=== PATIENT | male | born 1955 | race Asian ===

== ENCOUNTER 2016-05-27 22:31 | Inpatient (IN) | payer OTHER ==
[~2016-05-27] VITALS: Ht 172.7 cm; Wt 64.0 kg
[2016-05-27] MEDS ORDERED: IV NS 0.9% 1,000 ML BAG IV ONE (23:00)
[2016-05-27] MEDS ORDERED: PANTOPRAZOLE 80 MG in IV NS 0.9% 100 ML IV ONE (23:00)
[2016-05-27] MEDS ORDERED: ONDANSETRON HCL/PF 4 MG/2 ML VIAL IVP ONE (23:00)
[2016-05-27 23:42] LABS: ANION GAP 13 (5-14); CALCIUM, SERUM 8.6 mg/dL (8.5-10.1); CARBON DIOXIDE 29 mmol/L (21-32); CHLORIDE 106 mmol/L (98-107); CREATININE 0.8 mg/dL (0.6-1.3); GFR 98 mL/min (>60); GLUCOSE 120 mg/dL (74-106); POTASSIUM 3.8 mmol/L (3.5-5.1); SODIUM SERUM 144 mmol/L (136-145); UREA NITROGEN, BLOOD 20 mg/dL (7-18)
[2016-05-27 23:47] LABS: BASOPHILS % (AUTO) 0.2 % (0.0-2.0); DIFF TOTAL % 100 %; EOSINOPHILS # (AUTO) 0.1 /CMM (0.0-0.7); EOSINOPHILS % (AUTO) 0.5 % (0.0-6.0); HEMATOCRIT 47 % (39-51); HEMOGLOBIN 15.3 g/dL (13.5-17.5); LYMPHOCYTES # (AUTO) 1.2 /CMM (0.8-4.8); LYMPHOCYTES % (AUTO) 8.9 % (20.0-44.0); MEAN CORPUSCULAR HEMOGLOBIN 27 PG (26.0-33.0); MEAN CORPUSCULAR HGB CONC 33 g/dl (31.0-36.0); MEAN CORPUSCULAR VOLUME 81 fL (80-96); MONOCYTES # (AUTO) 0.4 /CMM (0.1-1.30); NEUTROPHILS # (AUTO) 11.3 /CMM (1.8-8.9); NEUTROPHILS % (AUTO) 87.4 % (43.0-81.0); PLATELET COUNT (AUTO) 174 /CMM (150-450); RED BLOOD CELL COUNT(AUTO) 5.78 MIL/uL (4.5-6.0); TROPONIN I < 0.017 ng/mL (0.00-0.056); WHITE BLOOD COUNT (AUTO) 12.9 K/uL (4.3-11.0)
[2016-05-27 23:56] LABS: ALANINE AMINOTRANSFERASE 20 U/L (12-78); ASPARTATE AMINOTRANSFERASE 21 U/L (15-37); BILIRUBIN,DIRECT 0.1 mg/dL (0.0-0.2); BILIRUBIN,TOTAL 0.5 mg/dL (0.2-1.0); INDIRECT BILIRUBIN 0.4 mg/dL (0.0-1.1); TOTAL PROTEIN, SERUM 7.7 g/dL (6.4-8.2)
[2016-05-27 23:57] LABS: INR 0.96 (0.87-1.13); PROTHROMBIN TIME 10.4 SECS (9.5-12.7)
[2016-05-28] VITALS (7 sets, daily range): BP systolic 109–136; BP diastolic 64–85
[2016-05-28] MEDS ORDERED: IV NS 0.9% 1,000 ML ONE (00:03)
[2016-05-28] MEDS ORDERED: IV SET PRIMARY PUMP SET 1 EA INFUS.SET MC ONE ×2 (00:03→12:04)
[2016-05-28] MEDS ORDERED: IV NS 0.9% 100 ML IV ONE (00:03)
[2016-05-28] MEDS ORDERED: ONDANSETRON HCL/PF 4 MG/2 ML VIAL ONE (00:03)
[2016-05-28] MEDS ORDERED: IV SET PRIMARY 1 EA INFUS.SET MC ONE (00:03)
[2016-05-28] MEDS ORDERED: PANTOPRAZOLE 40 MG VIAL ONE (00:04)
[2016-05-28] MEDS ORDERED: HYDROCODONE/APAP 5/325MG 1 EACH TABLET PO PRN (01:00)
[2016-05-28] MEDS ORDERED: ZOLPIDEM TARTRATE 5 MG TABLET PO PRN (01:00)
[2016-05-28] MEDS ORDERED: MAGNESIUM HYDROXIDE 30 ML UDC PO PRN (01:00)
[2016-05-28] MEDS ORDERED: PANTOPRAZOLE 40 MG VIAL IV SCH (01:00)
[2016-05-28] MEDS ORDERED: MAG HYDROX/AL HYDROX/SIMETH 30 ML UDC PO PRN (01:00)
[2016-05-28] MEDS ORDERED: Z GUARD REMEDY 2 OZ OINT TP PRN (01:00)
[2016-05-28] MEDS ORDERED: ONDANSETRON HCL/PF 4 MG/2 ML VIAL IVP PRN (01:00)
[2016-05-28] MEDS ORDERED: ACETAMINOPHEN 325 MG TABLET PO PRN (01:00)
[2016-05-28] MEDS ORDERED: AMLO5TAB2 PO (08:10)
[2016-05-28] MEDS ORDERED: MIRT15TA7 PO (08:10)
[2016-05-28] MEDS ORDERED: TRAZ-144 PO (08:10)
[2016-05-28] MEDS ORDERED: ATOR10TA PO (08:10)
[2016-05-28] MEDS ORDERED: ASPI81TA2 PO (08:10)
[2016-05-28] MEDS ORDERED: DONE5TAB34 PO (08:10)
[2016-05-28] MEDS: IV NS 0.9% 1,000 ML IV PRN ×2 (12:19→20:46)
[2016-05-28] MEDS: PANTOPRAZOLE 40 MG VIAL IV SCH (16:46)
[2016-05-28] MEDS: SUCRALFATE 1 G/10 ML UDC GT SCH (23:30)
[2016-05-29] VITALS: BP 114/68
[2016-05-29 04:00] VITALS: BP 117/68
[2016-05-29] MEDS: IV NS 0.9% 1,000 ML IV PRN ×2 (05:22→16:40)
[2016-05-29 07:03] LABS: BASOPHILS % (AUTO) 0.8 % (0.0-2.0); DIFF TOTAL % 100 %; EOSINOPHILS # (AUTO) 0.2 /CMM (0.0-0.7); EOSINOPHILS % (AUTO) 2.7 % (0.0-6.0); HEMATOCRIT 41 % (39-51); HEMOGLOBIN 13.7 g/dL (13.5-17.5); LYMPHOCYTES # (AUTO) 1.6 /CMM (0.8-4.8); LYMPHOCYTES % (AUTO) 27.4 % (20.0-44.0); MEAN CORPUSCULAR HEMOGLOBIN 27 PG (26.0-33.0); MEAN CORPUSCULAR HGB CONC 33 g/dl (31.0-36.0); MEAN CORPUSCULAR VOLUME 81 fL (80-96); MONOCYTES # (AUTO) 0.3 /CMM (0.1-1.30); MONOCYTES % (AUTO) 5.8 % (2.0-12.0); NEUTROPHILS # (AUTO) 3.6 /CMM (1.8-8.9); NEUTROPHILS % (AUTO) 63.3 % (43.0-81.0); PLATELET COUNT (AUTO) 144 /CMM (150-450); RED BLOOD CELL COUNT(AUTO) 5.07 MIL/uL (4.5-6.0); WHITE BLOOD COUNT (AUTO) 5.7 K/uL (4.3-11.0)
[2016-05-29 07:23] LABS: CALCIUM, SERUM 7.8 mg/dL (8.5-10.1); CREATININE 0.7 mg/dL (0.6-1.3); PHOSPHORUS 2.5 mg/dL (2.5-4.9); POTASSIUM 3.9 mmol/L (3.5-5.1)
[2016-05-29] MEDS: SUCRALFATE 1 G/10 ML UDC GT SCH ×3 (07:30→16:41)
[2016-05-29 08:00] VITALS: BP_SYST 127; BP_SYST 137; BP_DIAS 50; BP_DIAS 80
[2016-05-29] MEDS: PANTOPRAZOLE 40 MG VIAL IV SCH ×2 (09:01→16:41)
[2016-05-29 12:00] VITALS: BP 118/73
[2016-05-29] MEDS ORDERED: ANESTHESIA TRAY IN PYXIS 1 EA TRAY MC ONE (13:35)
[2016-05-29] MEDS ORDERED: SECONDARY IV SET 1 EA INFUS.SET MC ONE (13:50)
[2016-05-29] MEDS: Magnesium 1GM/D5W 100ML PREMIX 100 ML IV SCH ×2 (13:53→15:01)
[2016-05-29 16:00] VITALS: BP 139/58
[2016-05-29 20:00] VITALS: BP 145/76
[2016-05-30] VITALS: BP 137/63
[2016-05-30] MEDS: IV NS 0.9% 1,000 ML IV PRN ×2 (01:01→10:08)
[2016-05-30 04:00] VITALS: BP 127/63
[2016-05-30 08:00] VITALS: BP 134/98
[2016-05-30] MEDS: PANTOPRAZOLE 40 MG VIAL IV SCH ×2 (08:06→16:31)
[2016-05-30] MEDS: SUCRALFATE 1 G/10 ML UDC GT SCH ×3 (08:06→16:31)
[2016-05-30 10:26] LABS: CREATININE 0.7 mg/dL (0.6-1.3)
[2016-05-30 12:00] VITALS: BP_SYST 126; BP_SYST 155; BP_DIAS 70; BP_DIAS 75
== END 2016-05-30 17:30 | disposition home or self-care (01) | DRG 241 ==
LOC: ER 22:34 → TELE1 05-28 00:08
PROVIDERS: ADMIT Family Medicine; ATTEND Family Medicine
PROC: 0DB68ZX Excision of Stomach, Via Natural or Artificial Opening Endoscopic, Diagnostic (ICD-10-PCS; principal; 2016-05-29 12:15)
DX: K29.01 Acute gastritis with bleeding (principal); G93.40 Encephalopathy, unspecified; F03.90 Unspecified dementia, unspecified severity, without behavioral disturbance, psychotic disturbance, mood disturbance, and anxiety; D72.828 Other elevated white blood cell count; I10 Essential (primary) hypertension; B96.81 Helicobacter pylori [H. pylori] as the cause of diseases classified elsewhere
CPT/HCPCS: 36415; 71010-TC; 80048-TC; 80061-TC; 80076-TC; 83690-TC; 83735-TC; 84100-TC; 84484-TC; 85025-TC; 85730-TC; 86850-TC; 87081-TC; 88305-TC; 88313-TC; 88342; C9113; J2405; J3475; J7030; Z7610

== ENCOUNTER 2020-10-27 09:16 | Inpatient (IN) | payer OTHER ==
[~2020-10-27] VITALS: Ht 154.9 cm; Wt 54.4 kg
[~2020-10-27 09:16] MED LIST: AMLO-212 PO; ASPI-1169 PO; ATOR10TA PO; DONE5TAB34 PO; MIRT15TA7 PO; TRAZ-182 PO
[2020-10-27 09:40] LABS: BASOPHILS % (AUTO) 0.2 % (0.0-2.0); EOSINOPHILS % (AUTO) 0.4 % (0.0-6.0); HEMATOCRIT 48 % (39-51); HEMOGLOBIN 15.7 g/dL (13.5-17.5); LYMPHOCYTES # (AUTO) 1.2 /CMM (0.8-4.8); LYMPHOCYTES % (AUTO) 8.6 % (20.0-44.0); MEAN CORPUSCULAR HGB CONC 33 g/dl (31.0-36.0); MEAN CORPUSCULAR VOLUME 84 fL (80-96); MONOCYTES # (AUTO) 1.4 /CMM (0.1-1.30); MONOCYTES % (AUTO) 9.8 % (2.0-12.0); NEUTROPHILS # (AUTO) 11.7 /CMM (1.8-8.9); PLATELET COUNT (AUTO) 221 /CMM (150-450); RED BLOOD CELL COUNT(AUTO) 5.73 MIL/uL (4.5-6.0); WHITE BLOOD COUNT (AUTO) 14.4 K/uL (4.3-11.0)
[2020-10-27 09:42] LABS: BILIRUBIN,URINE MODERATE (NEGATIVE); COLOR,URINE DARK YELLOW (YELLOW); LEUKOCYTE ESTERASE ,URINE Negative (NEGATIVE); NITRITE, URINE Negative (NEGATIVE); PROTEIN,URINE 30 mg/dl (NEGATIVE); UGLUCOSE Negative (NEGATIVE)
--- NOTE | 2020-10-27 09:42 | NUR ---
radha, c/o abd pain since tuesday, no N/V, -diarrhea, 02/06 PS. On room air, breathing evenly and unlabored. Connected to the monitor and pulse ox. Kept comfortable, will continue to monitor accordingly. IV access started and lab drawned and sent to lab.
[2020-10-27 09:52] LABS: ALBUMIN 3.4 g/dL (3.4-5.0); BILIRUBIN,DIRECT 0.3 mg/dL (0.0-0.2); BILIRUBIN,TOTAL 1.4 mg/dL (0.2-1.0); CALCIUM, SERUM 8.9 mg/dL (8.5-10.1); CREATININE 0.9 mg/dL (0.6-1.3); POTASSIUM 3.7 mmol/L (3.5-5.1); TOTAL PROTEIN, SERUM 8.1 g/dL (6.4-8.2)
[2020-10-27 09:52] LABS: BACTERIA,URINE Few /HPF (None Seen); MUCUS,URINE Few /LPF (None Seen); RBC,URINE 0-2 /HPF (0-2); SQUAMOUS EPITHELIAL CELL,UR 0-2 /HPF (None Seen); WBC,URINE 0-2 /HPF (0-3)
[2020-10-27] MEDS ORDERED: IOHEXOL-300 100 ML VIAL IV ONE (10:07)
--- NOTE | 2020-10-27 10:09 | NUR ---
wheeled patient to ct
--- NOTE | 2020-10-27 10:45 | NUR ---
paged epic for panel admission
[2020-10-27] MEDS ORDERED: ONDANSETRON HCL/PF 4 MG/2 ML VIAL ONE (10:46)
[2020-10-27] MEDS ORDERED: MORPHINE SULFATE INJ 4 MG/ML DISP.SYRIN ONE (10:46)
[2020-10-27] MEDS ORDERED: LISI10TA29 PO (10:57)
[2020-10-27] MEDS ORDERED: BENZ-38 PO (10:57)
[2020-10-27] MEDS ORDERED: ONDA4TAB11 PO (10:57)
[2020-10-27] MEDS ORDERED: DOCU-342 PO (10:57)
[2020-10-27] MEDS ORDERED: LORA10TA7 PO (10:57)
[2020-10-27] MEDS ORDERED: PIPERACILLIN /TAZOBACTAM 3.375 G in IV D5W 50 ML IV ONE (11:00)
[2020-10-27] MEDS ORDERED: IV NS 0.9% 1,000 ML IV ONE (11:00)
[2020-10-27] MEDS ORDERED: ONDANSETRON HCL/PF 4 MG/2 ML VIAL IV ONE (11:00)
[2020-10-27] MEDS ORDERED: MORPHINE SULFATE INJ 2 MG/ML DISP.SYRIN IV ONE (11:00)
--- NOTE | 2020-10-27 11:20 | NUR ---
NURSING SUP CALLED AND ASKED ABOUT BED
--- NOTE | 2020-10-27 11:40 | NUR ---
PATIENT ADMITTING ROOM 308-2, RECEIVED REPORT ASHLEY/AMAN.
--- NOTE | 2020-10-27 11:41 | NUR ---
report given to Haydee GALLOWAY for erick
--- NOTE | 2020-10-27 12:05 | NUR ---
PATIENT ADMITTED FROM ER WITH MIGEL ADMITTED DX IS APPENDICITIS. PATIENT AMBULATORY AND INTACT SKIN, GIVEN ROOM ORIENTATION. CALL LIGHT WITHIN REACH, WILL CONTINUE TO MONITOR.
--- NOTE | 2020-10-27 12:05 | NUR ---
covid negative per lab
--- NOTE | 2020-10-27 12:18 | NUR ---
wheeled patient via gurney accompanied by EMT in no distress. RN at bedside to assume care.
[2020-10-27 13:00] VITALS: BP 159/82
--- NOTE | 2020-10-27 14:45 | NUR ---
SPOKE WITH DTR/TASIA REGARDING SIGN FOR CONSENT WHO WILL VISIT TO SEE PATIENT AND SIGN ON CONSENT.
[2020-10-27 16:00] VITALS: BP 152/78
--- NOTE | 2020-10-27 16:26 | NUR ---
PATIENT C/O ABDOMINAL PAIN, RECEIVED NEW ORDER: NORCO 5/325 MG P.O Q4, NOTED AND CARRY OUT.
[2020-10-27] MEDS: HYDROCODONE/APAP 5/325MG TABLET PO PRN ×2 (16:37→20:46)
--- NOTE | 2020-10-27 17:41 | NUR ---
OBTAINED SIGN OF CONSENT FOR LAPAROSCOPY, POSSIBLE LAPAROTOMY, POSSIBLE BOWEL RESECTION BY DTR/TASIA.
--- NOTE | 2020-10-27 18:03 | NUR ---
RN CLOSING NOTE PATIENT RESTING IN BED, REMAINS AO X 3-4. SKIN IS WARM TOUCH, KEEP CLEAN/DRY. RESPIRATORY EVEN AND UNLABORED IN ROOM AIR. KEPT ELEVATED HOB FOR ENSURE AIRWAY, ALSO LOWEST BED POSITION FOR SAFETY. PATIENT HAVE PROCEDURE TOMORROW, CONSENT HAS BEEN SINGED ALREADY. CALL LIGHT WITHIN REACH, WILL ENDORSE ASSISTANT CONSTRUCTION SUPERINTENDENT.
[2020-10-27 19:58] VITALS: BP 146/71
[2020-10-27 20:00] VITALS: BP 146/71
--- NOTE | 2020-10-27 20:22 | NUR ---
RECIEVED THE PATIENT IN BED ALERT AND ORIENTATED X3 DAUGHTER AT THE BEDSIDE BOTH ARE AWARE HE IS HAVING SURGERY IN THE AM AND BEING NPO AT MIDNIGHT BED ALARM ON REVIEWED THE CALL LIGHT WITH HIM CALL PLACED TO NOL AND QUESTIONED IF PATIENT NEED TO HAVE IV FLUID DO TO BEING NPO AT MIDNIGHT REPONSE WAS NO.
[2020-10-27] MEDS ORDERED: ONDANSETRON HCL/PF 4 MG/2 ML VIAL IVP PRN (22:00)
[2020-10-27] MEDS ORDERED: ACETAMINOPHEN 325 MG TABLET PO PRN (22:00)
[2020-10-27] MEDS ORDERED: Z GUARD REMEDY 2 OZ OINT TP PRN (22:00)
[2020-10-27] MEDS ORDERED: ZOLPIDEM TARTRATE 5 MG TABLET PO PRN (22:00)
[2020-10-27] MEDS ORDERED: BENZONATATE 100 MG CAPSULE PO PRN (22:30)
[2020-10-27] MEDS ORDERED: IV PREMIX D5 1/2NS + KCL 1,000 ML IV ONE (23:14)
[2020-10-27] MEDS: Potassium Chloride 20 MEQ in IV D5/0.45 NACL 1,000 ML IV PRN (23:25)
[2020-10-27] MEDS ORDERED: PIPERACILLIN /TAZOBACTAM 3.375 G VIAL IV ONE (23:40)
[2020-10-27] MEDS: ZOSYN IVPB 3.375 G in IV D5W 50ml IV SCH (23:45)
[2020-10-28] VITALS (12 sets, daily range): BP systolic 78–149; BP diastolic 35–80
[2020-10-28] MEDS: HYDROCODONE/APAP 5/325MG TABLET PO PRN ×2 (03:34→23:07)
--- NOTE | 2020-10-28 04:04 | NUR ---
ending notes: >NPO SINCE MIDNIGHT >SCHEDULED THIS EARLY AM FOR SURGERY WITH MD BOYD PT / DTR GURPREET AWARE >CONSENT SIGNED >LAST PO ANALGESIC FOR RIGHT LOWER ABD PAIN 0400AM AND EFFECTIVE >INC SPIR TEACHING STARTED
[2020-10-28 04:59] LABS: BASOPHILS % (AUTO) 0.4 % (0.0-2.0); EOSINOPHILS % (AUTO) 1.2 % (0.0-6.0); HEMATOCRIT 42 % (39-51); HEMOGLOBIN 13.4 g/dL (13.5-17.5); LYMPHOCYTES # (AUTO) 1.1 /CMM (0.8-4.8); LYMPHOCYTES % (AUTO) 9.1 % (20.0-44.0); MEAN CORPUSCULAR HGB CONC 32 g/dl (31.0-36.0); MEAN CORPUSCULAR VOLUME 83 fL (80-96); MONOCYTES # (AUTO) 1.1 /CMM (0.1-1.30); MONOCYTES % (AUTO) 8.6 % (2.0-12.0); NEUTROPHILS # (AUTO) 10.1 /CMM (1.8-8.9); NEUTROPHILS % (AUTO) 80.7 % (43.0-81.0); PLATELET COUNT (AUTO) 189 /CMM (150-450); RED BLOOD CELL COUNT(AUTO) 5.04 MIL/uL (4.5-6.0); WHITE BLOOD COUNT (AUTO) 12.5 K/uL (4.3-11.0)
[2020-10-28 05:29] LABS: CALCIUM, SERUM 8.4 mg/dL (8.5-10.1); CREATININE 0.8 mg/dL (0.6-1.3); MAGNESIUM 1.7 mg/dL (1.8-2.4); PHOSPHORUS 3.6 mg/dL (2.5-4.9); POTASSIUM 4.1 mmol/L (3.5-5.1)
[2020-10-28] MEDS: ZOSYN IVPB 3.375 G in IV D5W 50ml IV SCH (05:41)
[2020-10-28] MEDS ORDERED: FENTANYL PF 250MCG/5ML AMPUL ONE (06:54)
[2020-10-28] MEDS ORDERED: MIDAZOLAM HCL 2 MG/2ML VIAL ONE (06:54)
[2020-10-28] MEDS ORDERED: FENTANYL PF 100MCG/2ML AMPUL ONE (06:54)
[2020-10-28] MEDS ORDERED: HYDROMORPHONE INJ 2 MG/ML DISP.SYRIN ONE (06:55)
[2020-10-28] MEDS ORDERED: FAMOTIDINE/PF INJ 20 MG/2 ML VIAL IV ONE (06:56)
[2020-10-28] MEDS ORDERED: Potassium Chloride 20 MEQ in IV D5/0.45 NACL 1,000 ML IV SCH (07:00)
[2020-10-28] MEDS ORDERED: LIDOCAINE 1% INJ 50 ML MDV IJ ONE (07:01)
[2020-10-28] MEDS ORDERED: ANESTHESIA TRAY IN PYXIS 1 EA TRAY MC ONE (07:01)
[2020-10-28] MEDS ORDERED: BUPIVACAINE MPF W/EPI 0.25% 30 ML VIAL ONE (07:01)
--- NOTE | 2020-10-28 07:49 | NUR ---
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 WILL CONTINUE TO MONITOR.
[2020-10-28] MEDS ORDERED: METRONIDAZOLE 500MG/ NS 100ML 100 ML IV ONE (07:58)
[2020-10-28] MEDS: LORATADINE 10 MG TABLET PO SCH (09:00)
[2020-10-28] MEDS: LISINOPRIL (10MG) 10 MG TABLET PO SCH (09:00)
[2020-10-28] MEDS: ATORVASTATIN 10 MG TABLET PO SCH (09:00)
[2020-10-28] MEDS: DOCUSATE SODIUM 100 MG CAPSULE PO SCH ×2 (09:00→17:17)
[2020-10-28] MEDS ORDERED: HYDROMORPHONE 1 MG/1 ML DISP.SYRIN ONE (09:30)
[2020-10-28] MEDS ORDERED: LABETALOL HCL IV 100MG VIAL ONE (09:54)
--- NOTE | 2020-10-28 10:25 | NUR ---
PATIENT BACK FROM PROCEDURE ACCOMPANIED BY NURSE, VITAL SIGNS ARE DOCUMENTED ON INTERVENTION. RESPIRATORY EVEN AND UNLABORED WITH OXYGEN AT 1LPM. PATIENT STILL DROWSINESS DUE TO ANESTHESIA BUT EASILY WAKES UP BY VOICE AND PHYSICAL STIMULI. KEEP CLEAN/DRY ON SURGERY SITE, NO ACTIVE BLEEDING OR OOZING OBSERVED. WILL CONTINUE TO MONITOR.
[2020-10-28] MEDS ORDERED: METOCLOPRAMIDE HCL 10 MG/2 ML VIAL IV SCH ×2 (11:00→12:00)
[2020-10-28] MEDS: Magnesium 1GM/D5W 100ML PREMIX 100 ML IV SCH ×2 (13:28→14:55)
[2020-10-28] MEDS: METOCLOPRAMIDE HCL 10 MG/2 ML VIAL IV SCH ×3 (13:29→23:07)
[2020-10-28] MEDS: PIPERACILLIN /TAZOBACTAM 3.375 G in IV D5W 50 ML IV SCH ×3 (13:30→23:07)
[2020-10-28] MEDS: MORPHINE SULFATE INJ 2 MG/ML DISP.SYRIN IV PRN (17:27)
--- NOTE | 2020-10-28 17:35 | NUR ---
PATIENT C/O ABD PAIN IN SCALE 8/10 DUE TO S/P LAPAROSCOPY, GIVEN MORPHINE 2MG NEEDED PAIN MEDICATION.
--- NOTE | 2020-10-28 18:32 | NUR ---
RN CLOSING NOTE PATIENT RESTING IN BED, REMAINS AO X 3-4, S/P ABDOMINAL SX, DOES NO APPEARS DISTRESS OR DISCOMFORT. SKIN IS WARM TOUCH, KEEP CLEAN/DRY, NO ACTIVE BLEEDING OR OOZING OBSERVED ON ABDOMINAL DRESSING. RESPIRATORY EVEN AND UNLABORED IN ROOM AIR O2SAT 985. KEPT ELEVATED HOB FOR ENSURE AIRWAY AND ASPIRATION PRECAUTION, ALSO LOWEST BED POSITION FOR SAFETY. CALL LIGHT WITHIN REACH, WILL ENDORSE PCMH SPECIALIST.
--- NOTE | 2020-10-28 19:05 | NUR ---
MS RN OPENING NOTES: RECEIVED PATIENT IN BED, AWAKE, A/O X3. NO S/S OF DISTRESS NOTED. CALL LIGHT WITHIN REACH. BED ALARM ON. BED IN LOWEST AND LOCKED POSITION. WITH GLASS CATHETER INTACT, SECURED WITH PAPER TAPE, DRAINING TO A CLEAR LIGHT ELVA COLORED URINE.
[2020-10-28] MEDS: Potassium Chloride 20 MEQ in IV D5/0.45 NACL 1,000 ML IV PRN (21:13)
[2020-10-29] MEDS: HYDROCODONE/APAP 5/325MG TABLET PO PRN (04:00)
[2020-10-29] MEDS: PIPERACILLIN /TAZOBACTAM 3.375 G in IV D5W 50 ML IV SCH ×4 (05:51→23:42)
[2020-10-29] MEDS: METOCLOPRAMIDE HCL 10 MG/2 ML VIAL IV SCH ×4 (05:52→23:42)
[2020-10-29 05:59] LABS: BASOPHILS % (AUTO) 0.1 % (0.0-2.0); EOSINOPHILS % (AUTO) 0.2 % (0.0-6.0); HEMATOCRIT 39 % (39-51); HEMOGLOBIN 12.6 g/dL (13.5-17.5); LYMPHOCYTES % (AUTO) 7.5 % (20.0-44.0); MEAN CORPUSCULAR HGB CONC 33 g/dl (31.0-36.0); MEAN CORPUSCULAR VOLUME 83 fL (80-96); MONOCYTES # (AUTO) 1.1 /CMM (0.1-1.30); MONOCYTES % (AUTO) 7.6 % (2.0-12.0); NEUTROPHILS # (AUTO) 11.7 /CMM (1.8-8.9); NEUTROPHILS % (AUTO) 84.6 % (43.0-81.0); PLATELET COUNT (AUTO) 192 /CMM (150-450); RED BLOOD CELL COUNT(AUTO) 4.64 MIL/uL (4.5-6.0); WHITE BLOOD COUNT (AUTO) 13.8 K/uL (4.3-11.0)
[2020-10-29 06:21] LABS: MAGNESIUM 2.4 mg/dL (1.8-2.4); POTASSIUM 4.5 mmol/L (3.5-5.1)
--- NOTE | 2020-10-29 06:43 | NUR ---
GLASS CATHETER REMOVED,PATIENT TOLERATED, DUE TO VOID, WILL ENDORSE TO THE NEXT SHIFT RN.
--- NOTE | 2020-10-29 07:17 | NUR ---
LAINEY TREJO RECEIVED PATIENT IN BED, AWAKE, A/O X3. NO S/S OF DISTRESS NOTED. CALL LIGHT WITHIN REACH. BED ALARM ON. BED IN LOWEST AND LOCKED POSITION. WITH GALSS CATHETER INTACT, SECURED WITH PAPER TAPE, DRAINING TO A CLEAR LIGHT ELVA COLORED URINE. ALL NEEDS MET, CALL LIGHT WITHIN REACH AND ANSWERED PROMPTLY
[2020-10-29] MEDS: LORATADINE 10 MG TABLET PO SCH ×3 (08:19→08:22)
[2020-10-29] MEDS: LISINOPRIL (10MG) 10 MG TABLET PO SCH (08:20)
[2020-10-29] MEDS: ATORVASTATIN 10 MG TABLET PO SCH (08:20)
[2020-10-29] MEDS: DOCUSATE SODIUM 100 MG CAPSULE PO SCH ×2 (08:20→17:15)
[2020-10-29] MEDS: MORPHINE SULFATE INJ 2 MG/ML DISP.SYRIN IV PRN ×3 (09:49→22:15)
--- NOTE | 2020-10-29 09:49 | NUR ---
RN NOTE ACCIDENTLY PUT MORPHINE VIAL IN SHARPS BIN BEFORE SCANNING
[2020-10-29] MEDS: Potassium Chloride 20 MEQ in IV D5/0.45 NACL 1,000 ML IV PRN (17:15)
--- NOTE | 2020-10-29 18:38 | NUR ---
MSRN CLOSING NOTES RECEIVED PATIENT IN BED, AWAKE, A/O X3. NO S/S OF DISTRESS NOTED. BED ALARM ON. BED IN LOWEST AND LOCKED POSITION. ALL NEEDS MET, CALL LIGHT WITHIN REACH AND ANSWERED PROMPTLY. IV PATENT FLUSHING AN DINTACT RUNNING D5 1/2 NS WITH .15% KCL
--- NOTE | 2020-10-29 19:45 | NUR ---
RN NOTES Received pt. awake on bed, a/ox4, Sinhala speaking, daughter at bedside, dressing on the abdomen dry and intact, IV line patent asked patient if he already pass gas with the help of his daughter, pt stated that he pass pass gas already , pt just had pain medication an hour ago, call light within reach, siderailsupx2, will continue to monitor.
[2020-10-29 20:00] VITALS: BP 106/57
--- NOTE | 2020-10-29 22:21 | NUR ---
RN NOTES Complained of abdominal pain , pt is S/P Laparoscopy, possible bowel resection, pain scale of 9/10- Morphine 2 mg IV given as ordered, V/S stable
[2020-10-30] MEDS: MORPHINE SULFATE INJ 2 MG/ML DISP.SYRIN IV PRN ×3 (03:05→23:11)
--- NOTE | 2020-10-30 03:08 | NUR ---
RN NOTES complained of Abdominal pain (surgical site) 01/06- Morphine 2 mg IV given as ordered, V/S stable
[2020-10-30 04:00] VITALS: BP 144/78
[2020-10-30] MEDS: PIPERACILLIN /TAZOBACTAM 3.375 G in IV D5W 50 ML IV SCH ×4 (05:15→23:45)
[2020-10-30] MEDS: METOCLOPRAMIDE HCL 10 MG/2 ML VIAL IV SCH ×4 (05:15→23:11)
[2020-10-30] MEDS: Potassium Chloride 20 MEQ in IV D5/0.45 NACL 1,000 ML IV PRN ×2 (05:49→21:23)
[2020-10-30 06:10] LABS: BASOPHILS % (AUTO) 0.2 % (0.0-2.0); EOSINOPHILS % (AUTO) 0.9 % (0.0-6.0); HEMATOCRIT 37 % (39-51); HEMOGLOBIN 12.1 g/dL (13.5-17.5); LYMPHOCYTES # (AUTO) 1.1 /CMM (0.8-4.8); LYMPHOCYTES % (AUTO) 8.9 % (20.0-44.0); MEAN CORPUSCULAR HGB CONC 33 g/dl (31.0-36.0); MEAN CORPUSCULAR VOLUME 84 fL (80-96); MONOCYTES # (AUTO) 0.7 /CMM (0.1-1.30); MONOCYTES % (AUTO) 5.7 % (2.0-12.0); NEUTROPHILS # (AUTO) 10.5 /CMM (1.8-8.9); NEUTROPHILS % (AUTO) 84.3 % (43.0-81.0); PLATELET COUNT (AUTO) 212 /CMM (150-450); RED BLOOD CELL COUNT(AUTO) 4.44 MIL/uL (4.5-6.0); WHITE BLOOD COUNT (AUTO) 12.5 K/uL (4.3-11.0)
[2020-10-30 06:28] LABS: ALBUMIN 2.2 g/dL (3.4-5.0); BILIRUBIN,TOTAL 0.4 mg/dL (0.2-1.0); CALCIUM, SERUM 7.9 mg/dL (8.5-10.1); CREATININE 0.8 mg/dL (0.6-1.3); MAGNESIUM 1.9 mg/dL (1.8-2.4); PHOSPHORUS 2.2 mg/dL (2.5-4.9); POTASSIUM 4.2 mmol/L (3.5-5.1); TOTAL PROTEIN, SERUM 6.1 g/dL (6.4-8.2)
--- NOTE | 2020-10-30 06:44 | NUR ---
RN NOTES SLEEPING BUT AROUSABLE, NO PAIN NOTED, NO sob, CALL LIGHT WITHIN REACH, [id number], PT. NEEDS ATTENDED
--- NOTE | 2020-10-30 07:21 | NUR ---
MSRN OPENIONG notes RECEIVED PATIENT IN BED, AWAKE, A/O X3. NO S/S OF DISTRESS NOTED. CALL LIGHT WITHIN REACH. BED ALARM ON. BED IN LOWEST AND LOCKED POSITION. PT STATED HE PASSED A LOT OF GAS LAST NIGHT WITH HELP OF DAUGHTER AT BEDSIDE. ALL NEEDS MET, CALL LIGHT WITHIN REACH AND ANSWERED PROMPTLY
[2020-10-30] MEDS: DOCUSATE SODIUM 100 MG CAPSULE PO SCH ×2 (08:07→17:05)
[2020-10-30] MEDS: ATORVASTATIN 10 MG TABLET PO SCH (08:07)
[2020-10-30] MEDS: LORATADINE 10 MG TABLET PO SCH (08:07)
[2020-10-30] MEDS: LISINOPRIL (10MG) 10 MG TABLET PO SCH (08:08)
[2020-10-30] MEDS ORDERED: NEUTRA PHOS 1 POWD.PACKET PO ONE ×2 (12:30→15:00)
--- NOTE | 2020-10-30 18:38 | NUR ---
MSRN CLOSING notes RECEIVED PATIENT IN BED, AWAKE, A/O X3. NO S/S OF DISTRESS NOTED. CALL LIGHT WITHIN REACH. BED ALARM ON. BED IN LOWEST AND LOCKED POSITION. . ALL NEEDS MET, CALL LIGHT WITHIN REACH AND ANSWERED PROMPTLY
--- NOTE | 2020-10-30 19:35 | NUR ---
RN NOTES Received patient awake on bed, a/ox4, Citizen Of [place] speaking, dressing on the abdomen dry and intact ( S/P Laparoscopy Major Bowel resection ) 2 days ago, patient already pass gas, IV line patent, call light within reach, siderailsupx2, will continue to monitor
[2020-10-30 20:00] VITALS: BP 149/79
--- NOTE | 2020-10-30 23:18 | NUR ---
RN NOTES Complained of abdominal pain (S/P laparoscopy bowel resection) 02/06-Morphine 2 mg IV given as ordered, V/S stable
[2020-10-31] MEDS: PIPERACILLIN /TAZOBACTAM 3.375 G in IV D5W 50 ML IV SCH ×3 (05:20→17:28)
[2020-10-31] MEDS: METOCLOPRAMIDE HCL 10 MG/2 ML VIAL IV SCH ×3 (05:21→17:28)
[2020-10-31 06:03] LABS: BASOPHILS % (AUTO) 0.3 % (0.0-2.0); EOSINOPHILS % (AUTO) 1.6 % (0.0-6.0); HEMATOCRIT 39 % (39-51); LYMPHOCYTES # (AUTO) 1.4 /CMM (0.8-4.8); LYMPHOCYTES % (AUTO) 12.9 % (20.0-44.0); MEAN CORPUSCULAR HGB CONC 33 g/dl (31.0-36.0); MEAN CORPUSCULAR VOLUME 83 fL (80-96); MONOCYTES # (AUTO) 0.7 /CMM (0.1-1.30); MONOCYTES % (AUTO) 6.9 % (2.0-12.0); NEUTROPHILS # (AUTO) 8.3 /CMM (1.8-8.9); NEUTROPHILS % (AUTO) 78.3 % (43.0-81.0); PLATELET COUNT (AUTO) 265 /CMM (150-450); RED BLOOD CELL COUNT(AUTO) 4.73 MIL/uL (4.5-6.0); WHITE BLOOD COUNT (AUTO) 10.6 K/uL (4.3-11.0)
[2020-10-31 06:18] LABS: CALCIUM, SERUM 8.6 mg/dL (8.5-10.1); CREATININE 0.7 mg/dL (0.6-1.3); MAGNESIUM 1.9 mg/dL (1.8-2.4); POTASSIUM 4.5 mmol/L (3.5-5.1)
--- NOTE | 2020-10-31 06:48 | NUR ---
RN NOTES sleeping but arousable, denies pain, no SOB, morning care rendered, call lgiht within reach, katherineupx2, pt. needs attended
--- NOTE | 2020-10-31 07:15 | NUR ---
MS RN OPENING NOTE RECEIVED PATIENT IN BED. A/O X4. ON ROOM AIR, TOLERATING WELL. NO SOB NOTED. BREATHING IS EVEN AND UNLABORED. DENIES ANY PAIN OR DISCOMFORT AT THIS TIME. IV ACCESS ON R AC #18, INTACT AND PATENT, D5 1/2 NS + 20 meq KCl CURRENTLY RUNNING AT 75 ML/HR. SAFETY MEASURES MAINTAINED. BED IN LOWEST POSITION, BRAKES LOCKED. SIDE RAILS UP X2. CALL LIGHT WITHIN REACH. WILL CONTINUE PLAN OF CARE.
[2020-10-31] MEDS: ATORVASTATIN 10 MG TABLET PO SCH (09:30)
[2020-10-31] MEDS: LORATADINE 10 MG TABLET PO SCH (09:31)
[2020-10-31] MEDS: LISINOPRIL (10MG) 10 MG TABLET PO SCH (09:31)
[2020-10-31] MEDS: DOCUSATE SODIUM 100 MG CAPSULE PO SCH ×2 (09:31→17:28)
[2020-10-31] MEDS: MORPHINE SULFATE INJ 2 MG/ML DISP.SYRIN IV PRN (12:11)
[2020-10-31 16:06] VITALS: BP 123/75
--- NOTE | 2020-10-31 17:20 | NUR ---
MS RN NOTE R AC IV ACCESS NOT INTACT, REMOVED. INSERTED A NEW ACCESS ON R HAND #20 G, INTACT AND PATENT.
--- NOTE | 2020-10-31 18:17 | NUR ---
MS RN CLOSING NOTE PATIENT RESTING IN BED. A/O X4. ON ROOM AIR, TOLERATING WELL. NO SOB NOTED. IN NO APPARENT DISTRESS. NO REPORTS OF PAIN OR DISCOMFORT AT THIS TIME. IV ACCESS ON R HAND #20, INTACT AND PATENT, D5 1/2 NS + 20 meq KCl CURRENTLY RUNNING AT 75 ML/HR. ALL DUE MEDS GIVEN ORDERED. ALL NEEDS HAVE BEEN MET AND ATTENDED. SAFETY MEASURES MAINTAINED. BED IN LOWEST POSITION, BRAKES LOCKED. SIDE RAILS UP X2. CALL LIGHT WITHIN REACH. WILL ENDORSE CONTINUITY OF CARE TO ONCOMING SHIFT.
[2020-10-31] MEDS: Potassium Chloride 20 MEQ in IV D5/0.45 NACL 1,000 ML IV PRN (18:40)
--- NOTE | 2020-10-31 19:54 | NUR ---
MS/TELE/RN RECEIVED PATIENT LYING IN BED AWAKE, ALERT, COMFORTABLE, NO C/O PAIN, NO DISTRESS NOTED, CALL LIGHT IN REACH, FALL PRECAUTIONS PER PROTOCOL, CALL LIGHT IN REACH, WILL MONITOR.
[2020-10-31 20:00] VITALS: BP 128/77
--- NOTE | 2020-10-31 23:00 | NUR ---
MS/TELE/RN PATIENT IS SLEEPING AT THIS TIME, APPEAR COMFORTABLE, NO SIGNS OF DISTRESS NOTED, CALL LIGHT IN REACH, WILL CONTINUE TO MONITOR.
[2020-11-01] MEDS: METOCLOPRAMIDE HCL 10 MG/2 ML VIAL IV SCH ×3 (00:54→11:15)
[2020-11-01] MEDS: PIPERACILLIN /TAZOBACTAM 3.375 G in IV D5W 50 ML IV SCH ×3 (00:54→11:14)
[2020-11-01 06:08] LABS: BASOPHILS % (AUTO) 0.4 % (0.0-2.0); EOSINOPHILS % (AUTO) 1.7 % (0.0-6.0); HEMATOCRIT 42 % (39-51); LYMPHOCYTES # (AUTO) 1.5 /CMM (0.8-4.8); MEAN CORPUSCULAR HGB CONC 33 g/dl (31.0-36.0); MEAN CORPUSCULAR VOLUME 82 fL (80-96); MONOCYTES # (AUTO) 0.7 /CMM (0.1-1.30); MONOCYTES % (AUTO) 6.9 % (2.0-12.0); NEUTROPHILS # (AUTO) 8.3 /CMM (1.8-8.9); PLATELET COUNT (AUTO) 355 /CMM (150-450); RED BLOOD CELL COUNT(AUTO) 5.09 MIL/uL (4.5-6.0); WHITE BLOOD COUNT (AUTO) 10.8 K/uL (4.3-11.0)
[2020-11-01 06:09] LABS: CALCIUM, SERUM 8.7 mg/dL (8.5-10.1); CREATININE 0.8 mg/dL (0.6-1.3); POTASSIUM 4.5 mmol/L (3.5-5.1)
--- NOTE | 2020-11-01 07:15 | NUR ---
MS RN OPENING NOTE RECEIVED PATIENT SLEEPING IN BED, EASILY AROUSABLE. A/O X4. ON ROOM AIR, TOLERATING WELL. NO SOB NOTED. BREATHING IS EVEN AND UNLABORED. NO REPORTS OF PAIN OR DISCOMFORT AT THIS TIME. IV ACCESS ON R AC #18, INTACT AND PATENT, D5 1/2 NS + 20 meq KCl CURRENTLY RUNNING AT 75 ML/HR. SAFETY MEASURES MAINTAINED. BED IN LOWEST POSITION, BRAKES LOCKED. SIDE RAILS UP X2. CALL LIGHT WITHIN REACH. WILL CONTINUE PLAN OF CARE.
[2020-11-01 08:00] VITALS: BP 109/67
[2020-11-01] MEDS: DOCUSATE SODIUM 100 MG CAPSULE PO SCH (08:34)
[2020-11-01] MEDS: ATORVASTATIN 10 MG TABLET PO SCH (08:35)
[2020-11-01] MEDS: LORATADINE 10 MG TABLET PO SCH (08:35)
[2020-11-01 08:36] VITALS: BP 109/67
[2020-11-01] MEDS: LISINOPRIL (10MG) 10 MG TABLET PO SCH (08:36)
--- NOTE | 2020-11-01 08:41 | NUR ---
RN NOTE OPENED OMNICELL TO GET ATORVASTATIN. NEEDED IS 20 MG (2 PILLS) BUT ONLY PULLED OUT ONE. OPENED OMNICELL TO GET ANOTHER 10 MG.
[2020-11-01] MEDS: Potassium Chloride 20 MEQ in IV D5/0.45 NACL 1,000 ML IV PRN (08:44)
[2020-11-01] MEDS: MORPHINE SULFATE INJ 2 MG/ML DISP.SYRIN IV PRN (08:47)
[2020-11-01] MEDS ORDERED: HYDR-3972 PO (09:42)
--- NOTE | 2020-11-01 15:30 | NUR ---
MS RN NOTE PATIENT DISCHARGED. HEALTH TEACHING AND FOLLOW UP INSTRUCTIONS GIVEN TO THE PT AND DTR TASIA. ACCOMPANIED DOWNSTAIRS VIA WHEELCHAIR, PICKED UP BY A PRIVATE CAR. REMOVED IV ACCESS AND WRISTBAND. BELONGINGS WAS GIVEN TO THE PT. ALL FORMS SIGNED.
== END 2020-11-01 15:15 | disposition home or self-care (01) | DRG 331 ==
LOC: ER 09:16 → MED 11:25 → TELE 18:08 → MED 10-28 10:20
PROVIDERS: ADMIT Nurse Practitioner Acute Care; ATTEND Hospitalist
PROC: 0DTF0ZZ Resection of Right Large Intestine, Open Approach (ICD-10-PCS; principal; 2020-10-28)
DX: K35.33 Acute appendicitis with perforation, localized peritonitis, and gangrene, with abscess (principal); K29.60 Other gastritis without bleeding; I25.10 Atherosclerotic heart disease of native coronary artery without angina pectoris; I10 Essential (primary) hypertension; E78.5 Hyperlipidemia, unspecified; R19.03 Right lower quadrant abdominal swelling, mass and lump; E83.39 Other disorders of phosphorus metabolism; E83.42 Hypomagnesemia; F03.90 Unspecified dementia, unspecified severity, without behavioral disturbance, psychotic disturbance, mood disturbance, and anxiety; F32.9 Major depressive disorder, single episode, unspecified; E80.6 Other disorders of bilirubin metabolism; Z53.31 Laparoscopic surgical procedure converted to open procedure; D72.829 Elevated white blood cell count, unspecified; Z20.822 Contact with and (suspected) exposure to COVID-19
CPT/HCPCS: 36415; 71045-TC; 80048-TC; 80053-TC; 80061-TC; 80076-TC; 81001; 83690-TC; 83735-TC; 84100-TC; 84484-TC; 85025-TC; 85610-TC; 86850-TC; 87040-TC; 87081-TC; 88307-TC; 97116-TC; 97530-TC; A6209; G0378; J0690; J1170; J2250; J2270; J2405; J2543; J2704; J2765; J3010; J3475; J3480; J3490; J7030; J7050; J7060; Q9967